=== PATIENT | female | born 1995 | race Caucasian/White ===

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

== ENCOUNTER 2018-10-19 01:01 | Emergency (ER) | payer OTHER ==
--- NOTE | 2018-10-19 01:20 | EDPHY ---
H & P Stated Complaint: Syncope Time Seen by Provider: 10/19/18 01:20 HPI/ROS: HPI CHIEF COMPLAINT: Syncope. Head strike. HISTORY OF PRESENT ILLNESS: This is a very pleasant 23-year-old female, she presents emergency room after she had a syncopal episode with head strike against the toilet. The patient was in the shower she reports she was in the shower for 20 min was very hot. Her significant other at bedside was also in the shower and her significant other was opening up a "pushup pop" in the shower and cut his hand sustained a thumb laceration that then blood. She got a shower to get him a Band-Aid. When getting out of the shower she got acutely lightheaded. She felt like she was going to pass out so she bent over put her head down on the counter. She then stood back up and then had a syncopal episode she fell backwards with head strike. She had her head per her significant other at bedside rather hard against the toilet. She now presents emergency room left-sided posterior occiput headache. No laceration. She denies any chest pain or shortness of breath. She does report that she had marijuana earlier in the evening and a mixed drink. Past Medical History: No significant medical history Past Surgical History: No significant surgical history Social History: Denies drugs alcohol tobacco. Family History: Noncontributory ROS REVIEW OF SYSTEMS: 10 Systems were reviewed and negative with the exception of the elements mentioned in the history of present illness. Exam Constitutional nontoxic no acute distress triage nursing summary reviewed, vital signs reviewed, awake/alert. Eyes normal conjunctivae and sclera, EOMI, PERRLA. HENT head and neck atraumatic on exam except left occiput shows a scalp hematoma, no laceration, no midline neck pain or step-offs or crepitus, moist mucus membranes, no epistaxis, neck supple/ no meningismus, no raccoon eyes. Respiratory clear to auscultation bilaterally, normal breath sounds, no respiratory distress, no wheezing. Cardiovascular rate normal, regular rhythm, no murmur, no edema, distal pulses normal. Gastrointestinal soft, non-tender, no rebound, no guarding, normal bowel sounds, no distension, no pulsatile mass. Genitourinary no CVA tenderness. Musculoskeletal no midline vertebral tenderness, full range of motion, no calf swelling, no tenderness of extremities, no meningismus, good pulses, neurovascularly intact. Skin pink, warm, & dry, no rash, skin atraumatic. Neurologic awake, alert and oriented x 3, AAOx3, moves all 4 extremities equally, motor intact, sensory intact, CN II-XII intact, normal cerebellar, normal vision, normal speech. Psychiatric normal mood/affect. Heme/Lymph/Immune no lymphadenopathy. Differential Diagnosis: Includes but is not limited to in a particular order closed-head injury, intracranial bleed, soft tissue injury, skull fracture, scalp hematoma, vasovagal syncope, dehydration, electrolyte disturbance Medical Decision Making: Plan for this patient IV establishment IV fluid bolus , CT scan head without contrast for trauma, EKG, basic electrolytes, and re- evaluated. Clinically most likely the patient has syncopal episode due to vasovagal seeing blood in the shower the hot shower. Re-evaluation: EKG interpretation by me on record in [facility] system. Impression time of EKG 1:54 a.m., sinus rhythm rate of 62 without any signs of cardiac arrhythmia ischemia, WPW, or Brugada. CT scan head without contrast negative for acute bleed. Or traumatic injury. Faxed to me by [facility] at 2:32 a.m. Chest x-ray one view negative for acute cardiopulmonary disease. No evidence of trauma on exam. Image interpreted by myself. Labs reviewed and unremarkable EKG shows no signs of cardiac arrhythmia or ischemia Patient tolerated p.o. Challenge well. Patient ambulated well throughout the emergency room Patient requesting discharge. CT scan head negative for acute trauma Return precautions discussed with the patient as well as significant other at bedside. Source: Patient - Personal History LMP (Females 10-55): 15-21 Days Ago Current Tetanus/Diphtheria Vaccine: Yes Current Tetanus Diphtheria and Acellular Pertussis (TDAP): Yes Tetanus Vaccine Date: within 10 yrs - Medical/Surgical History Hx Asthma: No Hx Chronic Respiratory Disease: No Hx Diabetes: No Hx Cardiac Disease: No Hx Renal Disease: No Hx Cirrhosis: No Hx Alcoholism: No Hx HIV/AIDS: No Hx Splenectomy or Spleen Trauma: No Other PMH: ADHD - Social History Smoking Status: Never smoked Constitutional: Initial Vital Signs Temperature (C) 36.6 C 10/19/18 01:14 Heart Rate 65 10/19/18 01:14 Respiratory Rate 16 10/19/18 01:14 Blood Pressure 103/55 L 10/19/18 01:14 O2 Sat (%) 100 10/19/18 01:14 O2 Delivery Mode Room Air Allergies/Adverse Reactions: amoxicillin Allergy (Verified 10/19/18 01:13) Home Medications: Medication Instructions Recorded Adderall 10 MG (*) 09/20/16 Medical Decision Making - Data Points Laboratory Results: Laboratory Results 10/19/18 01:35 10/19/18 01:35 10/19/18 10/19/18 01:35 01:35 WBC 10.92 10^3/uL H 10^3/uL (3.80-9.50) RBC 4.59 10^6/uL 10^6/uL (4.18-5.33) Hgb 13.6 g/dL g/dL (12.6-16.3) Hct 41.1 % % (38.0-47.0) MCV 89.5 fL fL (81.5-99.8) MCH 29.6 pg pg (27.9-34.1) MCHC 33.1 g/dL g/dL (32.4-36.7) RDW 12.5 % % (11.5-15.2) Plt Count 259 10^3/uL 10^3/uL (150-400) MPV 10.8 fL fL (8.7-11.7) Neut % (Auto) 65.3 % % (39.3-74.2) Lymph % (Auto) 23.4 % % (15.0-45.0) [place] % (Auto) 8.2 % % (4.5-13.0) Eos % (Auto) 2.0 % % (0.6-7.6) Baso % (Auto) 0.7 % % (0.3-1.7) Nucleat RBC Rel Count 0.0 % % (0.0-0.2) Absolute Neuts (auto) 7.13 10^3/uL H 10^3/uL (1.70-6.50) Absolute Lymphs (auto) 2.55 10^3/uL 10^3/uL (1.00-3.00) Absolute Monos (auto) 0.90 10^3/uL H 10^3/uL (0.30-0.80) Absolute Eos (auto) 0.22 10^3/uL 10^3/uL (0.03-0.40) Absolute Basos (auto) 0.08 10^3/uL 10^3/uL (0.02-0.10) Absolute Nucleated RBC 0.00 10^3/uL 10^3/uL (0-0.01) Immature Gran % 0.4 % % (0.0-1.1) Immature Gran # 0.04 10^3/uL 10^3/uL (0.00-0.10) Sodium 139 mEq/L mEq/L (135-145) Potassium 3.9 mEq/L mEq/L (3.5-5.2) Chloride 104 mEq/L mEq/L (97-110) Carbon Dioxide 26 mEq/l mEq/l (22-31) Anion Gap 9 mEq/L mEq/L (6-14) BUN 15 mg/dL mg/dL (7-23) Creatinine 0.8 mg/dL mg/dL (0.6-1.0) Estimated GFR > 60 Glucose 90 mg/dL mg/dL (70-100) Calcium 9.6 mg/dL mg/dL (8.5-10.4) Medications Given: Discontinued Medications Sodium Chloride (Ns) 1,000 mls @ 0 mls/hr IV EDNOW ONE; Wide Open PRN Reason: Protocol Stop: 10/19/18 01:28 Last Admin: 10/19/18 01:41 Dose: 1,000 mls Departure - Departure Disposition: Home, Routine, Self-Care Clinical Impression: Syncope Qualifiers: Syncope type: vasovagal syncope Qualified Code(s): R55 - Syncope and collapse Condition: Good Instructions: Syncope (ED) Additional Instructions: 1. Stay well-hydrated drink lots of fluids. 2. Return emergency room if developing new episode of passing out, vomiting, headache, not doing well Referrals: Kayleigh Chance MD [Primary Care Provider] - As per Instructions
[2018-10-19] MEDS ORDERED: NS 1,000 ML IV ONE (01:27)
[2018-10-19 01:47] LABS: PLATELET COUNT 259 10^3/uL (150-400)
[2018-10-19 03:32] VITALS: BP 103/71
--- NOTE | 2018-10-21 08:04 | CPEKG ---
Test Reason : OPEN Blood Pressure : / mmHG Vent. Rate : 062 BPM Atrial Rate : 062 BPM P-R Int : 129 ms QRS Dur : 101 ms QT Int : 416 ms P-R-T Axes : 036 028 043 degrees QTc Int : 423 ms Sinus rhythm Confirmed by Jessee Bentley ([id number]) on 10/21/2018 8:03:54 AM Referred By: Jessee Bentley Confirmed By:Jessee Bentley
== END 2018-10-19 03:31 | disposition home or self-care (01) ==
DX: S00.03XA Contusion of scalp, initial encounter (principal); R55 Syncope and collapse; E86.9 Volume depletion, unspecified; W19.XXXA Unspecified fall, initial encounter; Y92.002 Bathroom of unspecified non-institutional (private) residence as the place of occurrence of the external cause; Y99.9 Unspecified external cause status